=== PATIENT | female | born 1995 | race Caucasian/White ===

== ENCOUNTER 2023-07-11 17:12 | Outpatient (CLI) | payer MEDICAID | END 2023-07-11 23:59 | disposition home or self-care (01) | LOC: RAD 17:12 | PROVIDERS: ATTEND Emergency Medicine | DX: E03.9 Hypothyroidism, unspecified (principal); R60.9 Edema, unspecified | CPT/HCPCS: 71046 ==

== ENCOUNTER 2023-08-02 15:15 | Outpatient (CLI) | payer MEDICARE, MEDICAID | END 2023-08-02 23:59 | disposition home or self-care (01) | LOC: RAD 15:15 | PROVIDERS: ATTEND Nurse Practitioner Primary Care | DX: E04.1 Nontoxic single thyroid nodule (principal); R60.9 Edema, unspecified; E03.9 Hypothyroidism, unspecified | CPT/HCPCS: 76536 ==